=== PATIENT | male | born 1950 | race Caucasian/White ===

== ENCOUNTER 2020-05-27 17:24 | Outpatient (RCR) | payer OTHER, SELFPAY ==
[2020-05-27] MEDS: COVID-19 VACC, MRNA(PFIZER)/PF 30 MCG/0.3 ML SYRINGE IM (16:04)
[2020-06-17] MEDS: COVID-19 VACC, MRNA(PFIZER)/PF 30 MCG/0.3 ML SYRINGE IM (15:26)
== END 2020-08-31 23:59 ==
LOC: IMMUN 17:24
PROVIDERS: PCP Family Medicine Sports Medicine; Visit Provider Family Medicine
DX: Z23 Encounter for immunization (principal)
CPT/HCPCS: 0001A; 0002A; 91300